=== PATIENT | female | born 1945 | race American Indian/Alaskan Native ===

== ENCOUNTER 2021-05-22 08:00 | Outpatient (CLI) | payer OTHER | END 2021-05-22 08:30 | disposition home or self-care (01) | LOC: PPH VACUNA 08:00 | PROVIDERS: ATTEND Emergency Medicine Pediatric Emergency Medicine | DX: Z23 Encounter for immunization (principal) ==

== ENCOUNTER 2021-10-18 08:00 | Outpatient (CLI) | payer OTHER | END 2021-10-18 08:30 | disposition home or self-care (01) | LOC: PPH VACUNA 08:00 | PROVIDERS: ATTEND Emergency Medicine Pediatric Emergency Medicine | DX: Z23 Encounter for immunization (principal) ==

== ENCOUNTER 2022-07-31 09:06 | Outpatient (CLI) | payer OTHER | END 2022-07-31 09:16 | disposition home or self-care (01) | LOC: NUCLEAR 09:06 | DX: I63.311 Cerebral infarction due to thrombosis of right middle cerebral artery (principal) ==

== ENCOUNTER 2022-07-31 11:42 | Outpatient (CLI) | payer OTHER | END 2022-07-31 12:23 | disposition home or self-care (01) | LOC: TOM 11:42 | DX: I67.82 Cerebral ischemia (principal) ==

== ENCOUNTER 2024-07-27 07:55 | Day surgery (SDC) | payer OTHER ==
[2024-07-23 08:01] LABS: HEMATOCRIT 39.9 % (36.0-45.00); HEMOGLOBIN 13.7 g/dL (12.0-15.00); MEAN CELL VOLUME 85.3 fL (80.00-100.00); MEAN CORPUSCULAR HEMOGLOBIN 29.2 pg (27.00-32.0); MEAN CORPUSCULAR HGB CONC 34.3 g/dl (32.0-36.0); PLATELET COUNT 347 K/uL (150-450); RED BLOOD COUNT 4.67 M/uL (4.00-6.00); RED CELL DISTRIBUTION WIDTH 13.6 % (11.5-14.5)
[2024-07-23 08:17] LABS: PARTIAL THROMBOPLASTIN TIME 28.2 SECONDS (22.0-34.0); PROTHROMBIN TIME 10.9 SECONDS (9.0-11.5)
[2024-07-23 08:18] LABS: COL EPI 65 SECONDS (82-175)
[2024-07-23 08:20] VITALS: BP 118/63
[2024-07-23 09:05] LABS: ALBUMIN 3.3 gm/dL (3.4-5.0); BILIRUBIN TOTAL 0.61 mg/dL (0.3-1.2); CALCIUM 9.3 mg/dL (8.5-10.1); CREATININE SERUM 0.62 mg/dL (0.55-1.02); GFR 93.34; GLOBULINA 3.6 G/DL (2.4-3.5); POTASSIUM 4.37 mEq/L (3.5-5.1); TOTAL PROTEIN 6.9 gm/dL (6.4-8.2)
[2024-07-23 11:32] LABS: PH,URINE 5.5 (5.0-8.0); URINE APPEARANCE Clear; URINE BILIRRUBIN Negative (NEGATIVE); URINE BLOOD Negative; URINE COLOR Yellow; URINE GLUCOSE Negative (NEGATIVE); URINE KETONE Negative (NEGATIVE); URINE LEUKOCYTE Small; URINE NITRATE Negative; URINE PROTEIN Negative (NEGATIVE); URINE UROBILINOGEN 0.2 E.U./dl
[2024-07-23 11:37] LABS: URINE BACTERIA 45.2 uL (0.0-1933); URINE EPITHELIAL CELLS 3.7 uL (0.0-38.8); URINE RBC 3.2 uL (0.0-20.8); URINE WBC 30.3 uL (0.0-23.2)
[~2024-07-27] VITALS: Ht 157.5 cm; Wt 49.9 kg
[~2024-07-27 07:55] MED LIST: BACTRIM DS TAB1 EACH PO; DAILY VITAMIN1 EAC2 PO; PLAVIX75 MG; QBRELIS1 MG/1 ML; VANCOMYCIN HCL 1,000 MG VIAL IV SCH
[2024-07-27] MEDS ORDERED: VANCOMYCIN HCL 1,000 MG VIAL ONE (09:55)
[2024-07-27] MEDS ORDERED: BUPIVACAINE HCL/Mpf 0.5% 10ML VIAL ONE (10:52)
[2024-07-27] MEDS ORDERED: MORPHINE SULFATE 4 MG/ML VIAL IV ONE ×2 (13:55→14:25)
== END 2024-07-27 17:00 | disposition home or self-care (01) ==
LOC: CIR.AMB 07:55
PROVIDERS: ATTEND Orthopaedic Surgery
DX: S52.571A Other intraarticular fracture of lower end of right radius, initial encounter for closed fracture (principal); I10 Essential (primary) hypertension; E78.5 Hyperlipidemia, unspecified
CPT/HCPCS: 25609; 20900; 25280; L8699

== ENCOUNTER 2024-08-17 09:55 | Outpatient (CLI) | payer OTHER ==
[~2024-08-17 09:55] MED LIST changes: -VANCOMYCIN HCL 1,000 MG VIAL IV SCH
== END 2024-08-17 10:02 | disposition home or self-care (01) ==
LOC: RAD 09:55
PROVIDERS: ATTEND Orthopaedic Surgery
DX: S52.571D Other intraarticular fracture of lower end of right radius, subsequent encounter for closed fracture with routine healing (principal); X58.XXXD Exposure to other specified factors, subsequent encounter

== ENCOUNTER → 2024-09-29 08:34 | Outpatient (CLI) | payer OTHER ==
[2024-09-29 09:55] LABS: ALBUMIN 3.4 gm/dL (3.4-5.0); BILIRUBIN TOTAL 0.5 mg/dL (0.3-1.2); CREATININE SERUM 0.6 mg/dL (0.55-1.02); GFR 96.94; GLOBULINA 3.7 G/DL (2.4-3.5); MAGNESIUM 2.3 mg/dL (1.8-2.4); PHOSPHOROUS 3.2 mg/dL (2.5-4.9); POTASSIUM 3.9 mEq/L (3.5-5.1); TOTAL PROTEIN 7.1 gm/dL (6.4-8.2)
[2024-09-30 11:10] LABS: CALCIUM IONIZED 4.9 mg/dL (4.5-5.6)
== END | disposition home or self-care (01) ==
LOC: LAB 08:34
PROVIDERS: ATTEND Orthopaedic Surgery
DX: E55.9 Vitamin D deficiency, unspecified (principal); M85.9 Disorder of bone density and structure, unspecified; E56.1 Deficiency of vitamin K; E21.3 Hyperparathyroidism, unspecified; E88.89 Other specified metabolic disorders; M81.8 Other osteoporosis without current pathological fracture

== ENCOUNTER → 2024-09-29 09:04 | Outpatient (CLI) | payer OTHER | END | disposition home or self-care (01) | LOC: NUCLEAR 09:04 | PROVIDERS: ATTEND Orthopaedic Surgery | DX: M81.0 Age-related osteoporosis without current pathological fracture (principal) ==